=== PATIENT | female | born 1980 | race Caucasian/White ===

== ENCOUNTER 2025-01-05 09:59 | Outpatient (CLI) | payer OTHER, SELFPAY ==
--- OUTSIDE RECORDS SUMMARY | 2025-01-05 10:18 | XMS_ITS | Referral Summary ---
Author Organization [facility] [address] Address [facility] [place] [address] Care Team Providers Care Site Promotion Agent Name Role Phone No, Physician Primary Care Provider Allergies No known active allergies Medications No known medications Active Problems Problem Noted Date Diagnosed Date Hirsutism 04/08/2014 Social History Tobacco Use Types Packs/Day Years Used Date Smoking Tobacco: Former Personal Safety Answer Date Recorded Getting School Help Needed Not on file 09/30 Comments Unknown Sex and Gender Information Value Date Recorded Sex Assigned at Not on file 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 Gender Identity Not on file Sexual Orientation Not on file Last Filed Vital Signs Vital Sign Reading Time Taken Comments Blood Pressure 129/85 11/18/2021 4:20 PM CDT Pulse 91 11/18/2021 4:20 PM CDT Temperature 36.8 C (98.3 F) 11/18/2021 4:20 PM CDT Respiratory Rate - - Oxygen Saturation 100% 11/18/2021 4:20 PM CDT Inhaled Oxygen Concentration - - Weight 60.6 kg (133 lb 11.2 oz) 11/18/2021 4:20 PM CDT Height 172.7 cm (5' 8) 11/18/2021 4:20 PM CDT Body Mass Index 20.33 11/18/2021 4:20 PM CDT Plan of Treatment Not on [place] [id number] Care Teams Site Promotion Agent Relationship Specialty Start Date End Date No, Physician PCP - General 11/18/21
--- OUTSIDE RECORDS SUMMARY | 2025-01-05 10:18 | XMS_ITS | Clinical Summary ---
Author Organization [facility] Address [address] [facility] [address] [place] [address] Care Team Providers Care Electroless Plater Name Role Phone Unavailable Primary Care Provider Unavailabl e Encounters Date Type Department Care Team Description 01/04/2025 External Device Data [facility] Provider, Abstract 12/23/2024 External Device Data [facility] Provider, Abstract 12/22/2024 External Device Data [facility] Provider, Abstract 12/21/2024 External Device Data [facility] Provider, Abstract 10/20/2024 External Device Data [facility] Provider, Abstract 10/13/2024 External Device Data [facility] Provider, Abstract 10/12/2024 External Device Data [facility] Provider, Abstract 10/12/2024 External Device Data [facility] Provider, Abstract 10/12/2024 External Device Data [facility] Provider, Abstract from Last 3 Months Social History Tobacco Use Types Packs/Day Years Used Date Smoking Tobacco: Never Assessed Comments Unknown Sex and Gender Information Value Date Recorded Sex Assigned at Not on file Legal Sex Female 8:02 AM CDT Gender Identity Not on file Sexual Orientation Not on file Plan of Treatment Health Maintenance Due Date Last Done Comments DTAP/TDAP/TD VACCINES (1 - Tdap) 2000 HEPATITIS B VACCINES (1 of 3 - 19+ 3-dose series) 2000 HPV/Cotest (21-29) 2002 CERVICAL CANCER SCREENING 2011 HPV/Cotest (30-65) 2011 PAP SMEAR 2011 BREAST CANCER SCREENING 2021 INFLUENZA VACCINE (#1) 2024 HPV VACCINES Aged Out No longer eligi ble based on patient's age to complete this topic Insurance [employer] Member Subscriber Plan / Payer (Ef fective 2024-Present) Name:Reshma Petersen Relation to Subscriber:Self Name:Resmha Petersen Subscriber ID:Not on file Payer ID:Not on file Group ID:[id number] Type:RX Commercial Address: [address]
--- OUTSIDE RECORDS SUMMARY | 2025-01-05 10:18 | XMS_ITS | Encounter Summary ---
Author Organization [facility] Address [address] [place] [address] Care Team Providers Care Head Of Digital Advertising & Integration Name Role Phone Unavailable Primary Care Provider Unavailabl e Encounter Details Date Type Department Care Team (Late st Contact Info) Description 01/04/2025 External Device Data [facility] Provider, Abstract NO ADDRESS ON FILE Social History Tobacco Use Types Packs/Day Years Used Date Smoking Tobacco: Never Assessed Comments Unknown Sex and Gender Information Value Date Recorded Sex Assigned at Not on file Legal Sex Female 8:02 AM CDT Gender Identity Not on file Sexual Orientation Not on file documented as of this encounter Plan of Treatment Not on file documented as of this encounter Visit Diagnoses Not on filedocumented in this encounter
--- OUTSIDE RECORDS SUMMARY | 2025-01-05 10:18 | XMS_ITS | Clinical Summary ---
Author Organization [facility] [address] Address 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
--- OUTSIDE RECORDS SUMMARY | 2025-01-05 10:18 | XMS_ITS | Data Portability ---
[facility] Organization [facility] Address [address] [place] [address] Care Team Providers Care Supervisor Riveting Name Role Phone EVON FREY Primary Care Provider Assessment No assessment recorded. Plan of Treatment Reminders Order Date Submit Date Provider Last Modified By Organization Details Last Modified Time Details Appointments None recorded. Lab drug screen, urine 2023 024 nereida In-Office Order, Internal Use Only DO Not Attach Compendium DO Not Attach Compendium, Do Not Delete/merge, [address] 19:01:52 drug screen, 14 drugs (detectimed ), urine 2023 024 [facility], [address], [address], 4 19:08:30 CMP, serum or plasma 2021 022 [facility], [address] [place] [address] 2, [place], [address], 2 10:11:20 CBC 2021 022 [facility], 102 [facility], [facility] 2, [place], [address], 2 10:11:21 lipid panel, serum 2021 022 [facility], 102 [facility], [facility] 2, [place], [address], 10:11:21 TSH + free T4, serum 2021 022 [facility], 102 [facility], [place], [address], 10:11:19 Referral None recorded. Procedures None recorded. Surgeries None recorded. Imaging None recorded. Medication Orders alprazolam 0.5 mg tablet 2022 023 [id number], [address] [place], [place], [id number], 3 19:07:37 tretinoin 0.05 % topical cream 2022 023 [facility] #[id number], [address] [place], [place], [id number], 3 19:07:56 alprazolam 0.5 mg tablet 2021 022 [facility] #[id number], [address] [place], [place], [id number], 12:19:30 tretinoin 0.05 % topical cream 2021 022 [facility] #[id number], [address] [place], [place], [id number], 12:19:29 Patient TargetsNo targets recorded. Patient Instructions Encounter Date Encounter Id Patient Instructions Last Modified By Organization Details Last Modified Time 04/25/2021 [id number] anxiety disorder : care instructions [email or web address] Not available 04/25/2021 15:29:23 03/22/2022 [id number] anxiety disorder : care instructions jnanney Not available 03/22/2022 12:19:22 01/21/2023 [id number] anxiety disorder : care instructions jnanney Not available 01/21/2023 19:07:32 01/27/2024 [id number] eating healthy foods: care instructions jnanney Not available 01/27/2024 19:01:06 Reason for Referral None Reported. Results Created Date Observation Date Name Description Value Unit Range Abnormal Flag Note LastModifiedBy Organization Detail LastModifiedTime 03/22/20 22 03/23/2022 TSH+F REE T4 TSH 0.943 uIU/m L 0.450- 4.500 Not Available [facility] ([facility]) [address] [place], [address], 03/23/2022 10:11:19 03/22/20 22 03/23/2022 TSH+F REE T4 T4,free(dire ct) 1.38 NG/dL 0.82-1 .77 Not Available [facility] ([facility]) [address] [place], [address], 03/23/2022 10:11:19 03/22/20 22 03/23/2022 COMP. METAB OLIC PANEL (14) glucose 98 mg/dL 65-99 Not Available [facility] ([facility]) [address] [place], [address], 03/23/2022 10:11:20 03/22/20 22 03/23/2022 COMP. METAB OLIC PANEL (14) BUN 13 mg/dL 6-24 Not Available [facility] ([facility]) [address] [place], [address], 03/23/2022 10:11:20 03/22/20 22 03/23/2022 COMP. METAB OLIC PANEL (14) creatinine 0.76 mg/dL 0.57-1 .00 Not Available [facility] ([facility]) [address] [place], [address], 03/23/2022 10:11:20 03/22/20 22 03/23/2022 COMP. METAB OLIC PANEL (14) eGFR 102 mL/mi n/1.7 3 >59 Not Available [facility] ([facility]) [address] [place], [address], 03/23/2022 10:11:20 03/22/20 22 03/23/2022 COMP. METAB OLIC PANEL (14) BUN/creatini ne ratio 17 9-23 Not Available [facility] ([facility]) [address] [facility], [place], [address], 03/23/2022 10:11:20 03/22/20 22 03/23/2022 COMP. METAB OLIC PANEL (14) sodium 139 mmol/ L 134-14 4 Not Available [facility] ([facility]) [address] [facility], [place], [address], 03/23/2022 10:11:20 03/22/20 22 03/23/2022 COMP. METAB OLIC PANEL (14) potassium 4.7 mmol/ L 3.5-5. 2 Not Available [facility] ([facility]) [address] [place], [address], 03/23/2022 10:11:20 03/22/20 22 03/23/2022 COMP. METAB OLIC PANEL (14) chloride 100 mmol/ L 96-106 Not Available [facility] ([facility]) [address] [place], [address], 03/23/2022 10:11:20 03/22/20 22 03/23/2022 COMP. METAB OLIC PANEL (14) carbon dioxide, total 23 mmol/ L 20-29 Not Available [facility] ([facility]) [address] [place], [address], 03/23/2022 10:11:20 03/22/20 22 03/23/2022 COMP. METAB OLIC PANEL (14) calcium 9.6 mg/dL 8.7-10 .2 Not Available [facility] ([facility]) [address] [place], [address], 03/23/2022 10:11:20 03/22/20 22 03/23/2022 COMP. METAB OLIC PANEL (14) protein, total 6.8 g/dL 6.0-8. 5 Not Available [facility] ([facility]) [address] [place], [address], 03/23/2022 10:11:20 03/22/20 22 03/23/2022 COMP. METAB OLIC PANEL (14) albumin 4.6 g/dL 3.8-4. 8 Not Available [facility] ([facility]) [address] [place], [address], 03/23/2022 10:11:20 03/22/20 22 03/23/2022 COMP. METAB OLIC PANEL (14) globulin, total 2.2 g/dL 1.5-4. 5 Not Available [facility] ([facility]) [address] [place], [address], 03/23/2022 10:11:20 03/22/20 22 03/23/2022 COMP. METAB OLIC PANEL (14) A/G ratio 2.1 1.2-2. 2 Not Available [facility] ([facility]) [address] [place], [address], 03/23/2022 10:11:20 03/22/20 22 03/23/2022 COMP. METAB OLIC PANEL (14) bilirubin, total 0.5 mg/dL 0.0-1. 2 Not Available [facility] ([facility]) [address] [place], [address], 03/23/2022 10:11:20 03/22/20 22 03/23/2022 COMP. METAB OLIC PANEL (14) alkaline phosphatase 42 IU/L 44-121 below low normal Not Available [facility] ([facility]) [address] [place], [address], 03/23/2022 10:11:20 03/22/20 22 03/23/2022 COMP. METAB OLIC PANEL (14) AST (SGOT) 19 IU/L 0-40 Not Available [facility] ([facility]) [address] [facility], [place], [address], 03/23/2022 10:11:20 03/22/20 22 03/23/2022 COMP. METAB OLIC PANEL (14) ALT (SGPT) 15 IU/L 0-32 Not Available [facility] ([facility]) [address] [facility], [place], [address], 03/23/2022 10:11:20 03/22/20 22 03/23/2022 CBC, PLATE LET, NO DIFFE RENTI AL WBC 10.9 x10e3 /uL 3.4-10 .8 above high normal Not Available [facility] ([facility]) [address] [facility], [place], [address], 03/23/2022 10:11:20 03/22/20 22 03/23/2022 CBC, PLATE LET, NO DIFFE RENTI AL RBC 4.14 x10e6 /uL 3.77-5 .28 Not Available [facility] ([facility]) [address] [facility], [place], [address], 03/23/2022 10:11:20 03/22/20 22 03/23/2022 CBC, PLATE LET, NO DIFFE RENTI AL hemoglobin 13.2 g/dL 11.1-1 5.9 Not Available [facility] ([facility]) [address] [place], [address], 03/23/2022 10:11:20 03/22/20 22 03/23/2022 CBC, PLATE LET, NO DIFFE RENTI AL hematocrit 38.9 % 34.0-4 6.6 Not Available [facility] ([facility]) [address] [facility], [place], [address], 03/23/2022 10:11:20 03/22/20 22 03/23/2022 CBC, PLATE LET, NO DIFFE RENTI AL MCV 94 fL 79-97 Not Available [facility] ([facility]) [address] [facility], [place], [address], 03/23/2022 10:11:20 03/22/20 22 03/23/2022 CBC, PLATE LET, NO DIFFE RENTI AL MCH 31.9 pg 26.6-3 3.0 Not Available [facility] ([facility]) [address] [facility], [place], [address], 03/23/2022 10:11:20 03/22/20 22 03/23/2022 CBC, PLATE LET, NO DIFFE RENTI AL MCHC 33.9 g/dL 31.5-3 5.7 Not Available [facility] ([facility]) [address] [facility], [place], [address], 03/23/2022 10:11:20 03/22/20 22 03/23/2022 CBC, PLATE LET, NO DIFFE RENTI AL RDW 12.3 % 11.7-1 5.4 Not Available [facility] ([facility]) [address] [facility], [place], [address], 03/23/2022 10:11:20 03/22/20 22 03/23/2022 CBC, PLATE LET, NO DIFFE RENTI AL platelets 330 x10e3 /uL 150-45 0 Not Available [facility] ([facility]) [address] [facility], [place], [address], 03/23/2022 10:11:20 03/22/20 22 03/23/2022 CBC, PLATE LET, NO DIFFE RENTI AL NRBC FERN GATHERER Not Available [facility] ([facility]) [address] [place], [address], 03/23/2022 10:11:20 03/22/20 22 03/23/2022 LIPID PANEL cholesterol, total 172 mg/dL 100-19 9 Not Available [facility] ([facility]) [address] [place], [address], 03/23/2022 10:11:21 03/22/20 22 03/23/2022 LIPID PANEL triglyceride s 65 mg/dL 0-149 Not Available [facility] ([facility]) [address] [facility], [place], [address], 03/23/2022 10:11:21 03/22/20 22 03/23/2022 LIPID PANEL HDL cholesterol 78 mg/dL >39 Not Available [facility] ([facility]) [address] [facility], [place], [address], 03/23/2022 10:11:21 03/22/20 22 03/23/2022 LIPID PANEL VLDL cholesterol lilia 13 mg/dL 5-40 Not Available [facility] ([facility]) [address] [facility], [place], [address], 03/23/2022 10:11:21 03/22/20 22 03/23/2022 LIPID PANEL LDL chol calc ([facility]) 81 mg/dL 0-99 Not Available [facility] ([facility]) [address] [facility], [place], [address], 03/23/2022 10:11:21 03/22/20 22 03/23/2022 LIPID PANEL comment: FERN GATHERER Not Available [facility] ([facility]) [address] [facility], [place], [address], 03/23/2022 10:11:21 03/22/20 22 03/23/2022 CARDI OVASC ULAR REPOR T interpretati on Note Suppl ement al repor t is avail able. Not Available [facility] ([facility]) [address] [facility], [place], [address], 03/23/2022 10:11:22 03/22/20 22 03/23/2022 CARDI OVASC ULAR REPOR T pdf . Not Available [facility] ([facility]) [address] [facility], [place], [address], 03/23/2022 10:11:22 01/27/20 24 02/06/2024 COMPL IANCE DRUG HIRO SIS, UR summary report (summary) FINAL ===== ===== ===== ===== ===== ===== ===== ===== ===== ===== ===== ===== ===== === TOXAS SURE COMP DRUG IHRO SIS,U R ===== ===== ===== ===== ===== ===== ===== ===== ===== ===== ===== ===== ===== === Test Resul t Flag Units Drug Prese nt not Decla red for Presc ripti on Verif icati on Carbo xy-TH C 55 UNEXP ECTED ng/mg creat Carbo xy-TH C is a metab olite of tetra hydro canna binol (THC) . Sourc e of THC is most commo nly herba l marij uana or marij uana- based produ cts, but THC is also prese nt in a sched uled presc ripti on medic ation . Trace amoun ts of THC can be prese nt in hemp and canna bidio l (CBD) produ cts. This test is not inten ded to disti nguis h betwe en delta -9-te trahy droca nnabi nol, the predo minan t form of THC in most herba l or marij uana- based produ cts, and delta -8-te trahy droca nnabi nol. Drug Absen t but Decla red for Presc ripti on Verif icati on Alpra zolam Not Detec sherry UNEXP ECTED ng/mg creat ===== ===== ===== ===== ===== ===== ===== ===== ===== ===== ===== ===== ===== === Test Resul t Flag Units Ref Range Creat inine 93 mg/dL >=20 ===== ===== ===== ===== ===== ===== ===== ===== ===== ===== ===== ===== ===== === Decla red Medic ation s: The judah ing and inter preta tion on this repor t are based on the follo wing decla red medic ation s. Unexp ected resul ts may arise from inacc uraci es in the decla red medic ation s. Not e: The testi ng scope of this panel inclu daniel these medic ation s: Alpra zolam Not e: The testi ng scope of this panel does not inclu de follo wing repor sherry medic ation s: Treti noin TOPIC AL ===== ===== ===== ===== ===== ===== ===== ===== ===== ===== ===== ===== ===== === For clini lilia consu ltati on, pleas e call [phone]. ===== ===== ===== ===== ===== ===== ===== ===== ===== ===== ===== ===== ===== === Not Available [facility] ([facility]) [address] [facility], [place], [address], 02/06/2024 19:08:30 01/27/20 24 02/06/2024 COMPL IANCE DRUG HIRO SIS, UR pdf . Not Available [facility] ([facility]) [address] [facility], [place], [address], 02/06/2024 19:08:30 01/27/20 24 01/27/2024 drug scree n, urine Methamphetam ine Negati ve Not Available In-Office Order Internal Use Only DO Not Attach Compendium DO Not Attach Compendium, Do Not Delete/merge, 01/27/2024 09:11:36 01/27/20 24 01/27/2024 drug scree n, urine THC Positi ve Not Available In-Office Order Internal Use Only DO Not Attach Compendium DO Not Attach Compendium, Do Not Delete/merge, 01/27/2024 09:11:36 01/27/20 24 01/27/2024 drug scree n, urine Cocaine (Gianluca) Negati ve Not Available In-Office Order Internal Use Only DO Not Attach Compendium DO Not Attach Compendium, Do Not Delete/merge, 01/27/2024 09:11:36 01/27/20 24 01/27/2024 drug scree n, urine Benzodiazepi ne (Bzo) Negati ve Not Available In-Office Order Internal Use Only DO Not Attach Compendium DO Not Attach Compendium, Do Not Delete/merge, 01/27/2024 09:11:36 01/27/20 24 01/27/2024 drug scree n, urine Methadone (Mtd) Negati ve Not Available In-Office Order Internal Use Only DO Not Attach Compendium DO Not Attach Compendium, Do Not Delete/merge, 01/27/2024 09:11:36 01/27/20 24 01/27/2024 drug scree n, urine Buprenorphin e (Bup) Negati ve Not Available In-Office Order Internal Use Only DO Not Attach Compendium DO Not Attach Compendium, Do Not Delete/merge, 01/27/2024 09:11:36 01/27/20 24 01/27/2024 drug scree n, urine Oxycodone (Oxy) Negati ve Not Available In-Office Order Internal Use Only DO Not Attach Compendium DO Not Attach Compendium, Do Not Delete/merge, 01/27/2024 09:11:36 01/27/20 24 01/27/2024 drug scree n, urine Barbiturates (Bar) Negati ve Not Available In-Office Order Internal Use Only DO Not Attach Compendium DO Not Attach Compendium, Do Not Delete/merge, 01/27/2024 09:11:36 01/27/20 24 01/27/2024 drug scree n, urine MDMA (Ecstacy) Negati ve Not Available In-Office Order Internal Use Only DO Not Attach Compendium DO Not Attach Compendium, Do Not Delete/merge, 01/27/2024 09:11:36 01/27/20 24 01/27/2024 drug scree n, urine Amphetamines (Amp) Negati ve Not Available In-Office Order Internal Use Only DO Not Attach Compendium DO Not Attach Compendium, Do Not Delete/merge, 01/27/2024 09:11:36 01/27/2001/27/2024 drug scree n, urine Phencyclidin e (Pcp) Negati ve Not Available In-Office Order Internal Use Only DO Not Attach Compendium DO Not Attach Compendium, Do Not Delete/merge, 01/27/2024 09:11:36 01/27/20 24 01/27/2024 drug scree n, urine Tricyclic Antidepressa nts Invali d Not Available In-Office Order Internal Use Only DO Not Attach Compendium DO Not Attach Compendium, Do Not Delete/merge, 01/27/2024 09:11:36 01/27/20 24 01/27/2024 drug scree n, urine Opiates (opi) Negati ve Not Available In-Office Order Internal Use Only DO Not Attach Compendium DO Not Attach Compendium, Do Not Delete/merge, 01/27/2024 09:11:36 01/27/20 24 01/27/2024 drug scree n, urine Fentanyl Positi ve Not Available In-Office Order Internal Use Only DO Not Attach Compendium DO Not Attach Compendium, Do Not Delete/merge, 01/27/2024 09:11:36 Result Notes None recorded. Problems No Known Problems Procedures Surgical History Date Name Laterality Status Provider Name and Address Organization Details Recorded Time 08/04/19 19 Date of Last Pap Smear completed Rae Lynn MA [facility] 07/11/2020 14:17:44 Tonsillectomy completed Rae Lynn MA [facility] 03/22/2022 12:09:18 Imaging Results None recorded. Procedure Notes None recorded. Medical Equipment None Reported. Allergies No known drug allergies Medications Name Sig Start Date Stop Date Status Note LastModified by Organization Details LastModified Time alprazolam 0.5 mg tabs 01/24 completed Not Available Not Available Not Available neomycin-po lymyxin-hyd rocort 3.5 mg/mL-10,00 0 unit/mL-1 % ear solution INSTILL 2 DROPS IN EACH AFFECTED EAR FOUR TIMES DAILY 04/25 completed Not Available Not Available Not Available prednisone 20 mg tablet 01/12 completed Not Available Not Available Not Available tretinoin 0.05 % topical cream APPLY TOPICALLY TO THE AFFECTED AREA EVERY DAY AT BEDTIME active Not Available Not Available No t Available alprazolam 0.5 mg tablet TAKE 1 TABLET BY MOUTH EVERY DAY NEEDED FOR ANXIETY active Not Available Not Available No t Available alprazolam 0.25 mg tablet TAKE 1 TABLET BY MOUTH EVERY DAY NEEDED 01/12 completed Not Available Not Available Not Available buspirone 10 mg tablet Take 1 tablet twice a day by oral route for 30 days. 01/12 completed Not Available Not Available Not Available hydroxyzine HCl 25 mg tablet 01/12 completed Not Available Not Available Not Available mupirocin 2 % topical ointment 07/11 completed Not Available Not Available Not Available methylpredn isolone 4 mg tablets in a dose pack 07/11 completed Not Available Not Available Not Available amoxicillin 875 mg-potassiu m clavulanate 125 mg tablet TAKE 1 TABLET BY MOUTH TWICE DAILY FOR 7 DAYS 03/22 completed Not Available Not Available Not Available amoxicillin 500 mg-potassiu m clavulanate 125 mg tablet TAKE 1 TABLET BY MOUTH TWICE DAILY FOR 5 DAYS 01/26 completed Not Available Not Available Not Available neomycin-po lymyxin-hyd rocort 3.5 mg-10,000 unit/mL-1 % ear drops,susp SHAKE AND INSTILL 4 DROPS IN AFFECTED EAR(S) 3 TIMES A DAY FOR 7 DAYS 05/11 completed Not Available Not Available Not Available ciprofloxac in 0.3 %-dexametha sone 0.1 % ear drops,suspe nsion SHAKE LIQUID AND INSTILL 4 DROPS TO LEFT EAR TWICE DAILY FOR 7 DAYS 03/22 completed Not Available Not Available Not Available nitrofurant oin monohydrate /macrocryst als 100 mg capsule TAKE 1 CAPSULE BY MOUTH EVERY 12 HOURS FOR 5 DAYS 01/26 completed Not Available Not Available Not Available Vitals Date Recorded Body height Body mass index (BMI) Body weight Oxygen saturation Oxygen saturation in Arterial blood by Pulse oximetry Heart rate Systolic blood pressure Diastolic blood pressure Provider Name and Address Organization Details Last Updated DateTime 3 172.72 cm 19.2 kg/m2 36211.6 4 g 98 % 98 % 83 /min 104 mm[Hg] 72 mm[Hg] Rae Lynn MA [facility] 3 18:43:41 Date Recorded Body height Body mass index (BMI) Body weight Oxygen saturation Oxygen saturation in Arterial blood by Pulse oximetry Heart rate Respiratory rate Body temperature Systolic blood pressure Diastolic blood pressure Provider Name and Address Organization Details Last Updated DateTime 4 172.72 cm 18.6 kg/m2 39144.4 2 g 99 % 99 % 78 /min 16 /min 98 [degF] 118 mm[Hg] 72 mm[Hg] Zully Mckeon MA [facility] 4 18:47:35 Date Recorded Body height Body mass index (BMI) Body weight Body temperature Oxygen saturation Oxygen saturation in Arterial blood by Pulse oximetry Heart rate Systolic blood pressure Diastolic blood pressure Provider Name and Address Organization Details Last Updated DateTime 2 172.72 cm 20.1 kg/m2 31572.1 9 g 97.6 [degF] 97 % 97 % 76 /min 118 mm[Hg] 80 mm[Hg] Rae Lynn MA [facility] 2 12:06:44 Date Recorded Body height Body temperature Heart rate Oxygen saturation Oxygen saturation in Arterial blood by Pulse oximetry Body mass index (BMI) Body weight Systolic blood pressure Diastolic blood pressure Provider Name and Address Organization Details Last Updated DateTime 1 172.72 cm 98.7 [degF] 87 /min 98 % 98 % 19.3 kg/m2 25132.6 3 g 115 mm[Hg] 80 mm[Hg] Lala Borges MA [facility] 1 15:05:03 Date Recorded Body height Body mass index (BMI) Body weight Oxygen saturation Oxygen saturation in Arterial blood by Pulse oximetry Heart rate Respiratory rate Systolic blood pressure Diastolic blood pressure Provider Name and Address Organization Details Last Updated DateTime 4 172.72 cm 19.2 kg/m2 84105.7 9 g 99 % 99 % 83 /min 16 /min 112 mm[Hg] 74 mm[Hg] Zully Mckeon MA [facility] 4 18:57:00 Social History Question Answer Notes LastModified by Organizat ion Details LastModified Time Tobacco Smoking Status Former Smoker Quit 3 months ago Rae Lynn MA null, [place] - [facility] 01/25/2020 17:45:38 Are You Blind Or Do You Have Difficulty Seeing? No Information not available 02/14/2021 What Is Your Level Of Caffeine Consumption? Moderate Information not available 01/25/2020 How Much Tobacco Do You Chew? None Information not available 07/13/2019 In The 14 Days Before Symptom Onset, Have You Had Close Contact With A Laboratory-confir med COVID-19 While That Case Was Ill? No Information not available 02/14/2021 In The 14 Days Before Symptom Onset, Have You Had Close Contact With A Person Who Is Under Investigation For COVID-19 While That Person Was Ill? No Information not available 02/14/2021 Have You Been To An Area Known To Be High Risk For COVID-19? No Information not available 02/14/2021 Are You Deaf Or Do You Have Serious Difficulty Hearing? No Information not available 02/14/2021 What Type Of Diet Are You Following? REGULAR Information not available 01/25/2020 Which Illicit Or Recreational Drugs Have You Used? None Information not available 01/25/2020 Education 2 Year College Information not available 01/25/2020 Are There Any Guns Present In Your Home? No Information not available 02/14/2021 Marital Status Informatio n not available 01/25/2020 What Was The Date Of Your Most Recent Tobacco Screening? 05/11/2024 Information not available 05/11/2024 What Is Your Relationship Status? Information not available 02/14/2021 Do You Use Your Seat Belt Or Car Seat Routinely? Yes Information not available 02/14/2021 Do You Have Smoke And Carbon Monoxide Detectors In Your Home? Yes Information not available 02/14/2021 Are You Passively Exposed To Smoke? No Information no t available 02/14/2021 How Much Tobacco Do You Smoke? No /3 Information not available 07/13/2019 General Stress Level Medium Information not available 07/11/2020 Has Tobacco Cessation Counseling Been Provided? No Information not available 03/22/2022 On What Date Was Tobacco Cessation Counseling Provided? 05/11/2024 Information not available 05/11/2024 How Many Years Have You Smoked Tobacco? 16 Information not available 07/13/2019 Sex: Female Functional Status Question Answer Note LastModified by Organizat ion Details LastModified Time Do you use any illicit or recreational drugs? No Information not available 02/14/2021 Do you or have you ever used any other forms of tobacco or nicotine? No Information not available 03/22/2022 What is your level of alcohol consumption? Occasional Information not available 09/11/2017 Do you or have you ever used smokeless tobacco? Never used smokeless tobacco Information not available 07/13/2019 Are you currently employed? Yes Information not available 02/14/2021 Are you able to care for yourself? Yes Information not available 02/14/2021 What is your occupation? [employer] Information not available 01/25/2020 Do you or have you ever used e-cigarettes or vape? Never used electronic cigarettes Information not available 07/13/2019 What is your exercise level? None Information not available 01/27/2024 Mental Status Question Answer Note LastModified by Organization D etails LastModified Time Do you feel stressed (tense, restless, nervous, or anxious, or unable to sleep at night)? [id number] [email or web address] Information not available 04/25/2021 Family History Nothing Reported. Medical History Condition Response Coronary Artery Disease N Other N High Blood Pressure N Atrial Fibrillation N Thyroid Problems Y Kidney or Bladder Problems N GI Problems N Depression N COPD N Blood Clots N Skin Problems N Eating Disorder N Anemia N Heart Attack (MS) N Anxiety Disorder Y Diabetes N Muscle, Joint, or Bone Problems N Seizures/Epilepsy N Acid Reflux (GERD) N Cancer N Stroke N Asthma N Allergies N ADHD N Substance Abuse N High Cholesterol N Hepatitis N Liver Disease N Schizophrenia N Headaches N Heart Failure N Osteoporosis N Gynecological History Statement/Question Response Date of Last Pap Smear 08/04/2018 Current Control Method None Date of LMP 05/10/2024 LMP Approximate Obstetrics History GPAL:G 0 P 0 0 0 0 Past Encounters Encounter ID Performer Location Encounter Start Date Encounter Closed Date Diagnosis/Indication Diagnosis SNOMED-CT Code Diagnosis ICD10 Code Diagnosis Note [id number] Willi Granger MD [facility] [address] [place] [address] 09/11/2017 16:39:42 09/11/2017 17:51:04 Anxiety 80388444 F41.9 [id number] Willi Granger MD [facility] [address] [place] [address] 09/25/2017 11:49:43 09/25/2017 15:51:24 Generalized anxiety disorder 65013254 F41.1 [id number] Evon Frey PA-C [facility] [address] [place] [address] 01/12/2019 15:54:50 01/12/2019 16:55:46 Generalized anxiety disorder 66206404 F41.1 [id number] Evon Frey PA-C [facility] [address] [place] [address] 07/13/2019 17:17:32 07/13/2019 17:57:11 Loss of hair 756256474 L65.8 [id number] Evon Frey PA-C [facility] [address] [place] [address] 01/25/2020 11:18:43 01/25/2020 18:12:06 Generalized anxiety disorder 55316469 F41.1 [id number] Willi Granger MD [facility] [address] [place] [address] 07/11/2020 09:34:24 07/11/2020 17:34:38 Generalized anxiety disorder 73659615 F41.1 [id number] Willi Granger MD [facility] [address] [place] [place] [address] 10/19/2020 14:14:47 10/24/2020 09:13:01 Long-term drug therapy 455800106 Z79.821 [id number] Willi Granger MD [facility] [address] [place] [address] 02/14/2021 18:02:37 02/14/2021 19:03:14 Adult health examination 232468926 Z00.00 [id number] Evon Frey PA-C [facility] [address] [place] [address] 04/25/2021 14:49:07 04/25/2021 15:37:59 Generalized anxiety disorder 68733024 F41.1 [id number] Evon Frey PA-C [facility] [address] [place] [address] 03/22/2022 12:00:07 03/22/2022 12:53:55 Generalized anxiety disorder 60669635 F41.1 [place] 58424679 L81.1 Adult [facility] th examination 269308270 Z00.00 [id number] Willi Granger MD [facility] [address] [place] [address] 01/21/2023 18:37:12 01/22/2023 08:33:20 Generalized anxiety disorder 89217245 F41.1 [place] 48579280 L81.1 [id number] Willi Granger MD [facility] [address] [place] [address] 01/27/2024 18:40:16 01/29/2024 20:09:40 Long-term drug therapy 174305350 Z79.899 Generalize d anxiety disorder 92585280 F41.1 [place] 03444086 L81.1 [facility] 775221453 R6 3.6 [id number] Evon Frey PA-C [facility] [address] [place] [address] 05/11/2024 18:46:38 05/13/2024 14:55:22 Mixed anxiety and depressive disorder 379318647 F41.8 Health Concerns Section Related Observation LastModified by Organization Detai ls LastModified Time None Recorded Concern Status LastModified by Organization Details LastModified Time None Recorded Advance Directives Directive None Recorded Payers Encounter Date Sequence Insurance Name Policy Number Policy Edwards Covered Member ID Edwards Member ID Guarantor Name 04/25/2021 1 [facility] [id number] Reshma Cat Wellser [id number] [facility] 03/22/2022 1 [employer] [id number] Reshmanicholas Wellser [id number] [facility] 01/21/2023 1 [id number] Reshmanicholas Wellser [id number] [facility] 01/27/2024 1 [place] [id number] Reshma Wellser [id number] [facility] 05/11/2024 1 [place] [id number] Reshma Wellser [id number] [facility] Notes Date Note Type Note Provider Name and Address Organization Details Recorded Time 04/25/2021 text/html hx of anxiety ...is trepidatious about the vaccine...also rt ear pain..given ear drops and antibiotics Evon Frey PA-C Attn: [address] [place], [address], [facility] [place] 04/25/2021 15:34:07 03/22/2022 text/html Here for med refill....wonderin g if rx for topical tretinoin can be switched from derm to here...used for melasma...brings no other concerns Evon Frey PA-C Attn: [address] [place], [address], [facility] [place] 03/22/2022 12:21:37 01/21/2023 text/html 3 months check u p on alprazolam... Evon Frey PA-C Attn: [address] [facility], [place], [address], [place] [facility] 01/21/2023 19:08:16 01/27/2024 text/html needs refills al l is well...is losing weight lots of stress Toña Bae MA null, [place] [facility] 01/27/2024 19:15:03 05/11/2024 text/html 3 month vs controls...all is well.. Evon Frey PA-C Attn: [address] [facility], [place], [address], [place] [facility] 05/11/2024 19:05:25 OBGyn Episode No OBEpisode recorded.
--- OUTSIDE RECORDS SUMMARY | 2025-01-05 10:18 | XMS_ITS | Clinical Summary ---
Author Organization [facility] Address [address] [place] [address] Phone Care Team Providers Care Performance Analyst Name Role Phone Unavailable Primary Care Provider Unavailabl e Social History Tobacco Use Types Packs/Day Years Used Date Smoking Tobacco: Never Assessed Comments Unknown Sex and Gender Information Value Date Recorded Sex Assigned at Not on file Legal Sex Female 9:09 AM CDT Gender Identity Not on file Sexual Orientation Not on file Plan of Treatment Health Maintenance Due Date Last Done Comments Hepatitis C Virus (HCV) Screening 1981 TdaP Immunization 1981 Hepatitis B Immunization (1 of 3 - 19+ 3-dose series) 2000 Pap Smear 2002 Cervical Cancer Screening (CCS) 2011 HPV/Cotest 2011 Discussion re Starting/Frequ ency of Mammograms 2021 Influenza Immunization (#1) 2024 SARS-COV-2 Immunization ( season) 2024 Respiratory Syncytial Virus (RSV) Immunization (Adult) (1 - 1-dose 75+ series) 2056 Meningococcal Immunization (ACWY) Aged Out No longer eligible based on patient's age to complete this topic Pneumococcal Immunization Combined Aged Out No longer eligible based on patient's age to complete this topic Rotavirus Immunization Aged Out No lo nger eligible based on patient's age to complete this topic Insurance [facility]
[2025-01-05 10:49] LABS: Basophils Percent Auto 0.3 % (0.2-1.2); Eosinophils Absolute Auto 0.1 K/mm3 (0-0.3); Hematocrit 40.2 % (37.0-47.0); Hemoglobin 13.6 g/dL (12.0-15.0); Immature Granulocyte Absolute 0.04 K/mm3 (0.00-0.031); Immature Granulocyte Percent A 0.3 % (0-0.5); Lymphocytes Absolute Auto 4.27 K/mm3 (0.9-3.2); Lymphocytes Percent Auto 37.3 % (18.3-44.2); Mean Corpuscular HGB Conc 33.8 g/dl (32-36); Mean Corpuscular Volume 94.6 fl (80-100); Mean Platelet Volume 9.4 fl (7.4-10.4); Monocytes Absolute Auto 0.8 K/mm3 (0.1-0.6); Monocytes Percent Auto 7.3 % (2.6-8.5); Neutrophils Absolute Auto 6.2 K/mm3 (1.3-6.7); Neutrophils Percent Auto 53.8 % (45.5-73.1); Platelet Count Result 327 k/mm3 (150-375); Red Blood Count 4.25 M/mm3 (4.2-5.4); Red Cell Distribution Width 11.9 % (11.5-14.5); White Blood Count 11.4 K/mm3 (4.5-10.0)
[2025-01-05 11:11] LABS: Alanine Aminotransferase 23 U/L (6-35); Albumin Level 4.6 g/dL (3.5-5.1); Alkaline Phosphatase 29 U/L (38-126); Anion Gap 9 mmol/L (4-12); Aspartate Amino Transferase 24 U/L (14-36); Bilirubin,Total 0.2 mg/dL (0.2-1.3); Blood Urea Nitrogen 9 mg/dL (7-17); Calcium 9.5 mg/dL (8.4-10.2); Carbon Dioxide 27 mmol/L (22-30); Chloride 104 mmol/L (98-107); Estimated Glomerular Filt Rate > 60; Glucose 103 mg/dL (65-110); Potassium 3.6 mmol/L (3.4-5.0); Sodium 140 mmol/L (137-145); Total Protein 7.1 g/dL (6.3-8.2)
[2025-01-05 11:26] LABS: Erythrocyte Sedimentation Rate 10 mm/hr (0-20)
[2025-01-07 12:29] LABS: Anti Nuclear Antibody Pattern Cytoplasmic
== END 2025-01-05 10:00 | disposition home or self-care (01) ==
PROVIDERS: Visit Provider Registered Nurse
DX: L71.8 Other rosacea (principal)
CPT/HCPCS: 36415; 80053; 85025; 85652; 86038; 86039